=== PATIENT | female | born 1960 | race Caucasian/White ===

== ENCOUNTER 2016-10-04 14:39 | Inpatient (IN) | payer OTHER ==
[~2016-10-04] VITALS: Ht 157.5 cm; Wt 63.1 kg
[~2016-10-04 14:39] MED LIST: AMLO5TAB2 PO; APIX5TAB PO; ASPI-515 PO; ATOR40TA78 PO; CEFD300C2 PO; ERGO500017 PO; FAMO20TA7 PO; GABA100C8 PO; HYDR25TA6 PO; LISI-167 PO; LISI-170 PO; LISI30TA4 PO; METF10002 PO; METF500T4 PO; METO25TA35 PO; METO25TA4 PO; PREG150C PO
[2016-10-04 18:01] VITALS: BP 150/87
[2016-10-04 20:00] VITALS: BP 146/78
[2016-10-04] MEDS ORDERED: BISACODYL 10 MG SUPP PR PRN (20:30)
[2016-10-04] MEDS ORDERED: ACETAMINOPHEN 325 MG TABLET PO PRN (20:30)
[2016-10-04] MEDS ORDERED: POLYETHYLENE GLYCOL 17 GM PACKET PO PRN (20:30)
[2016-10-04] MEDS ORDERED: PLEASE ENTER HEIGHT AND WEIGHT MC SCH (20:30)
[2016-10-04] MEDS ORDERED: ONDANSETRON 2MG/ML, 2ML IVP PRN (20:30)
[2016-10-04] MEDS ORDERED: DOCUSATE 100 MG CAPSULE PO PRN (20:30)
[2016-10-04] MEDS ORDERED: metFORMIN 500 MG TABLET PO SCH (21:00)
[2016-10-04] MEDS: ERGOCALCIFEROL 50,000 UNIT CAPSULE PO SCH ×2 (22:00→22:15)
[2016-10-04] MEDS: INSULIN REGULAR 100 UNITS/ML, 3ML VIAL SQ-INSULIN SCH (22:00)
[2016-10-04] MEDS: FAMOTIDINE 20 MG TABLET PO SCH (22:15)
[2016-10-04] MEDS: ATORVASTATIN 40 MG TABLET PO SCH (22:15)
[2016-10-04] MEDS: SODIUM CHLORIDE 0.9% 1,000 ML IV SCH (22:21)
[2016-10-05] VITALS (9 sets, daily range): BP systolic 128–177; BP diastolic 82–94
[2016-10-05] MEDS: SODIUM CHLORIDE 0.9% 1,000 ML IV SCH (03:53)
[2016-10-05 05:56] LABS: HEMOGLOBIN 14.1 g/dL (11.7-16.4)
[2016-10-05 06:23] LABS: ASPARTATE AMINO TRANSFERASE 17 U/L (15-37); BLOOD UREA NITROGEN 10 mg/dL (7-18)
[2016-10-05] MEDS: INSULIN REGULAR 100 UNITS/ML, 3ML VIAL SQ-INSULIN SCH ×4 (07:00→21:40)
[2016-10-05] MEDS ORDERED: POTASSIUM CHLORIDE 20 MEQ TAB.ER.PRT PO ONE (07:00)
[2016-10-05] MEDS ORDERED: MAGNESIUM SULFATE PMX 2GM/50ML 50 ML IV ONE (07:00)
[2016-10-05] MEDS: POTASSIUM CHLORIDE 20 MEQ TAB.ER.PRT PO SCH (08:00)
[2016-10-05] MEDS ORDERED: metFORMIN 500 MG TABLET PO SCH (09:00)
[2016-10-05] MEDS: metFORMIN 500 MG TABLET PO SCH (09:51)
[2016-10-05] MEDS: FAMOTIDINE 20 MG TABLET PO SCH ×2 (09:51→21:48)
[2016-10-05] MEDS ORDERED: APIXABAN 5 MG TABLET PO SCH (11:00)
[2016-10-05] MEDS: GABAPENTIN 300 MG CAPSULE PO SCH ×3 (11:25→21:48)
[2016-10-05] MEDS: ATORVASTATIN 40 MG TABLET PO SCH (21:48)
[2016-10-06 01:53] VITALS: BP 158/83
[2016-10-06 05:25] LABS: HEMOGLOBIN 13.5 g/dL (11.7-16.4)
[2016-10-06 05:44] LABS: ASPARTATE AMINO TRANSFERASE 113 U/L (15-37); BLOOD UREA NITROGEN 10 mg/dL (7-18)
[2016-10-06 07:37] VITALS: BP 145/88
[2016-10-06] MEDS: FAMOTIDINE 20 MG TABLET PO SCH ×2 (08:48→20:30)
[2016-10-06] MEDS: GABAPENTIN 300 MG CAPSULE PO SCH ×3 (08:48→20:30)
[2016-10-06] MEDS: POTASSIUM CHLORIDE 20 MEQ TAB.ER.PRT PO SCH (08:49)
[2016-10-06] MEDS: metFORMIN 500 MG TABLET PO SCH (08:49)
[2016-10-06] MEDS: INSULIN REGULAR 100 UNITS/ML, 3ML VIAL SQ-INSULIN SCH ×4 (08:49→21:00)
[2016-10-06] MEDS ORDERED: ERGOCALCIFEROL 50,000 UNIT CAPSULE PO SCH (09:00)
[2016-10-06 12:48] VITALS: BP 126/86
[2016-10-06] MEDS ORDERED: MAGNESIUM SULFATE PMX 2GM/50ML 50 ML IV ONE (15:30)
[2016-10-06 18:36] VITALS: BP 144/79
[2016-10-06] MEDS: ATORVASTATIN 40 MG TABLET PO SCH (20:30)
[2016-10-07 03:05] VITALS: BP 145/89
[2016-10-07] MEDS: ASPIRIN 81 MG TABLET EC PO SCH (05:43)
[2016-10-07 06:57] LABS: BLOOD UREA NITROGEN 9 mg/dL (7-18)
[2016-10-07] MEDS: INSULIN REGULAR 100 UNITS/ML, 3ML VIAL SQ-INSULIN SCH ×4 (07:00→21:00)
[2016-10-07 07:02] LABS: ASPARTATE AMINO TRANSFERASE 42 U/L (15-37)
[2016-10-07 07:31] VITALS: BP 170/97
[2016-10-07] MEDS: GABAPENTIN 300 MG CAPSULE PO SCH ×3 (09:03→21:35)
[2016-10-07] MEDS: FAMOTIDINE 20 MG TABLET PO SCH ×2 (09:03→21:35)
[2016-10-07] MEDS: POTASSIUM CHLORIDE 20 MEQ TAB.ER.PRT PO SCH (09:03)
[2016-10-07] MEDS: metFORMIN XR 500 MG TAB.ER.24H PO SCH (09:04)
[2016-10-07 14:06] VITALS: BP 149/91
[2016-10-07 18:36] VITALS: BP 167/99
[2016-10-07] MEDS: ATORVASTATIN 40 MG TABLET PO SCH (21:35)
[2016-10-08 02:16] VITALS: BP 135/81
[2016-10-08] MEDS: ASPIRIN 81 MG TABLET EC PO SCH (04:52)
[2016-10-08 07:00] VITALS: BP 152/92
[2016-10-08] MEDS: INSULIN REGULAR 100 UNITS/ML, 3ML VIAL SQ-INSULIN SCH ×4 (07:00→20:37)
[2016-10-08] MEDS: GABAPENTIN 300 MG CAPSULE PO SCH ×3 (08:28→20:40)
[2016-10-08] MEDS: POTASSIUM CHLORIDE 20 MEQ TAB.ER.PRT PO SCH (08:29)
[2016-10-08] MEDS: metFORMIN XR 500 MG TAB.ER.24H PO SCH (08:29)
[2016-10-08] MEDS: FAMOTIDINE 20 MG TABLET PO SCH ×2 (08:29→20:40)
[2016-10-08 13:40] VITALS: BP 167/102
[2016-10-08 14:31] VITALS: BP 167/95
[2016-10-08 18:53] VITALS: BP 183/107
[2016-10-08] MEDS: ATORVASTATIN 40 MG TABLET PO SCH (20:40)
[2016-10-09 01:59] VITALS: BP 156/90
[2016-10-09] MEDS: ASPIRIN 81 MG TABLET EC PO SCH (05:45)
[2016-10-09 06:50] VITALS: BP 169/100
[2016-10-09] MEDS: INSULIN REGULAR 100 UNITS/ML, 3ML VIAL SQ-INSULIN SCH (07:00)
[2016-10-09] MEDS: metFORMIN XR 500 MG TAB.ER.24H PO SCH (07:16)
[2016-10-09] MEDS: POTASSIUM CHLORIDE 20 MEQ TAB.ER.PRT PO SCH (07:16)
[2016-10-09] MEDS: FAMOTIDINE 20 MG TABLET PO SCH (08:06)
[2016-10-09] MEDS: GABAPENTIN 300 MG CAPSULE PO SCH (08:06)
[2016-10-09 08:08] VITALS: BP 159/102
[2016-10-09] MEDS ORDERED: LISINOPRIL 20 MG TABLET PO SCH (09:00)
[2016-10-09] MEDS ORDERED: AMLODIPINE 5 MG TABLET PO SCH (09:00)
[2016-10-09 09:14] VITALS: BP 139/91
[2016-10-09] MEDS ORDERED: ASPI-621 PO (09:46)
== END 2016-10-09 11:30 | disposition home or self-care (01) | DRG 66 ==
LOC: 4WST 18:00 → DCLOUNGE 10-09 10:32
PROVIDERS: ADMIT Internal Medicine; ATTEND Internal Medicine
PROC: 0T9B70Z Drainage of Bladder with Drainage Device, Via Natural or Artificial Opening (ICD-10-PCS; principal; 2016-10-04)
DX: I63.9 Cerebral infarction, unspecified (principal); I73.9 Peripheral vascular disease, unspecified; E55.9 Vitamin D deficiency, unspecified; E78.5 Hyperlipidemia, unspecified; E87.6 Hypokalemia; I10 Essential (primary) hypertension; F10.10 Alcohol abuse, uncomplicated; E11.40 Type 2 diabetes mellitus with diabetic neuropathy, unspecified; E80.6 Other disorders of bilirubin metabolism; I48.91 Unspecified atrial fibrillation; Z86.73 Personal history of transient ischemic attack (TIA), and cerebral infarction without residual deficits; Z79.899 Other long term (current) drug therapy; Z79.84 Long term (current) use of oral hypoglycemic drugs; Z71.41 Alcohol abuse counseling and surveillance of alcoholic; Z79.01 Long term (current) use of anticoagulants; Z79.82 Long term (current) use of aspirin
CPT/HCPCS: 36415; 80053; 80061; 81001; 82247; 82248; 82962; 83735; 84100; 84443; 85025; 85610; 87086; 87324; J1815; 92523-GN; J3475; J7030